=== PATIENT | male | born 1985 | race Caucasian/White ===

== ENCOUNTER 2016-08-06 17:26 | Emergency (ER) | payer BC ==
[~2016-08-06 17:26] MED LIST: ANAPROX DS550 MG PO; AUGMENTIN 875 M1 TAB PO; COUMADIN6 M1 PO; ENALAPRIL10 MG PO; HYDROCODONE BIT1 T11 PO; LOTRISONE 0.05%1 CRE TP; PREDNICOT10 MG PO; VICODIN 500 MG-1 TAB PO; VICODIN ES 7501 TAB PO
[2016-08-06] MEDS ORDERED: MEDROL DOSEPAK4 MG PO (18:23)
[2016-08-06] MEDS ORDERED: AMOXICILLIN500 M2 PO (18:23)
== END 2016-08-06 18:26 | disposition home or self-care (01) ==
LOC: ED 17:26
DX: J01.90 Acute sinusitis, unspecified (principal); J40 Bronchitis, not specified as acute or chronic

== ENCOUNTER 2016-10-18 20:48 | Emergency (ER) | payer BC ==
[~2016-10-18] VITALS: Ht 182.8 cm; Wt 108.9 kg
[~2016-10-18 20:48] MED LIST changes: +AMOXICILLIN500 M2 PO; +MEDROL DOSEPAK4 MG PO
== END 2016-10-18 22:39 | disposition home or self-care (01) ==
LOC: ED 20:48
DX: H61.23 Impacted cerumen, bilateral (principal); Z79.899 Other long term (current) drug therapy; Z79.02 Long term (current) use of antithrombotics/antiplatelets

== ENCOUNTER → 2016-12-27 | Outpatient (CLI) | payer BC ==
[2016-12-27 16:47] LABS: HEMATOCRIT 43.2 % (42.0-52.0); HEMOGLOBIN 14.5 g/dl (14.0-18.0); MEAN CELL VOLUME 87.8 fl (80.0-94.0); MEAN CORPUSCULAR HGB 29.5 pg (27.0-31.0); MEAN CORPUSCULAR HGB CONC 33.6 g/dl (33.0-37.0); RED BLOOD COUNT 4.92 10*6/uL (4.50-5.90); RED CELL DISTRI WIDTH 13.8 % (0-14.5); WHITE BLOOD COUNT 8.4 10*3/uL (4.8-10.8)
[2016-12-27 17:18] LABS: ALBUMIN 4.2 gm/dl (3.1-4.5); ALKALINE PHOSPHATASE 79 U/L (45-117); BILIRUBIN, TOTAL 0.3 mg/dl (0.2-1.0); BUN 18 mg/dl (7-24); CARBON DIOXIDE 29 mmol/L (21-32); CHLORIDE 110 mmol/L (98-107); CHOLESTEROL 157 mg/dL (<200); EST GLOM FILT AFRICAN AMERICAN > 60 ml/min; GLUCOSE 102 mg/dL (65-99); HDL CHOLESTEROL 46 mg/dl (40-60); LDL CHOLESTEROL 82 mg/dL (9-159); POTASSIUM 4.5 mmol/L (3.5-5.1); SGOT/AST 22 IU/L (3-35); SGPT/ALT 29 U/L (12-78); SODIUM 142 mmol/L (136-145); TOTAL PROTEIN 7.5 gm/dL (6.4-8.2); TRIGLYCERIDES 147 mg/dl (<150); VLDL CHOLESTEROL 29 mg/dL (6-40)
== END | disposition home or self-care (01) ==
LOC: LAB 16:33
PROVIDERS: Family Medicine
DX: M25.561 Pain in right knee (principal); M25.551 Pain in right hip; M79.604 Pain in right leg; E78.00 Pure hypercholesterolemia, unspecified; R53.83 Other fatigue; I51.9 Heart disease, unspecified; Z87.81 Personal history of (healed) traumatic fracture

== ENCOUNTER 2017-02-11 11:19 | Emergency (ER) | payer BC ==
[~2017-02-11] VITALS: Wt 117.9 kg
[2017-02-11] MEDS ORDERED: CIPROFLOXACIN 110 ML OPH (11:44)
== END 2017-02-11 12:42 | disposition home or self-care (01) ==
LOC: ED 11:19
DX: H10.32 Unspecified acute conjunctivitis, left eye (principal); Z79.899 Other long term (current) drug therapy; Z79.02 Long term (current) use of antithrombotics/antiplatelets

== ENCOUNTER 2019-06-23 10:01 | Emergency (ER) | payer BC ==
[~2019-06-23] VITALS: Ht 182.8 cm; Wt 127.0 kg
[~2019-06-23 10:01] MED LIST changes: +CEFUROXIME AXE250 MG PO; +CIPROFLOXACIN 110 ML OPH; +COUMADIN1 M1 PO; -COUMADIN6 M1 PO; +COUMADIN7.5 M1 PO; +HYDROCODONE-AC1 EAC1 PO; +PROTONIX40 MG PO
[2019-06-23] MEDS ORDERED: NORCO 5-325 TA1 EACH PO (12:55)
== END 2019-06-23 12:58 | disposition home or self-care (01) ==
LOC: ED 10:01
DX: S62.396A Other fracture of fifth metacarpal bone, right hand, initial encounter for closed fracture (principal); I10 Essential (primary) hypertension; F17.200 Nicotine dependence, unspecified, uncomplicated; Z79.2 Long term (current) use of antibiotics; Z79.899 Other long term (current) drug therapy; Z79.01 Long term (current) use of anticoagulants; W22.8XXA Striking against or struck by other objects, initial encounter; Y93.89 Activity, other specified; Y92.89 Other specified places as the place of occurrence of the external cause; Y99.8 Other external cause status

== ENCOUNTER → 2019-07-19 | Outpatient (CLI) | payer BC ==
[~2019-07-19] MED LIST changes: +NORCO 5-325 TA1 EACH PO
[2019-07-19 10:29] LABS: HEMATOCRIT 46.7 % (42.0-52.0); HEMOGLOBIN 15.3 g/dl (14.0-18.0); MEAN CELL VOLUME 87.6 fl (80.0-94.0); MEAN CORPUSCULAR HGB 28.7 pg (27.0-31.0); MEAN CORPUSCULAR HGB CONC 32.8 g/dl (33.0-37.0); RED BLOOD COUNT 5.33 10*6/uL (4.50-5.90); RED CELL DISTRI WIDTH 13.7 % (0-14.5); WHITE BLOOD COUNT 8.1 10*3/uL (4.8-10.8)
[2019-07-19 10:50] LABS: ALKALINE PHOSPHATASE 93 U/L (45-117); BUN 12 mg/dl (7-24); CHLORIDE 109 mmol/L (98-107); CHOLESTEROL 172 mg/dL (<200); CPK 143 U/L (39-308); CREATININE 1.07 mg/dL (0.70-1.30); HDL CHOLESTEROL 42 mg/dl (40-60); LDL CHOLESTEROL 105 mg/dL (9-159); POTASSIUM 3.8 mmol/L (3.5-5.1); SGOT/AST 22 IU/L (3-35); SGPT/ALT 32 U/L (12-78); SODIUM 141 mmol/L (136-145); TOTAL PROTEIN 7.4 gm/dL (6.4-8.2); TRIGLYCERIDES 126 mg/dl (<150); VLDL CHOLESTEROL 25 mg/dL (6-40)
[2019-07-19 10:58] LABS: THYROID STIM HORMONE (HS) 0.757 uIU/ml (0.358-4.75)
[2019-07-20 07:04] LABS: RHEUMATOID ARTHRITIS FACTOR <10.0 IU/mL (0.0-13.9)
== END | disposition home or self-care (01) ==
LOC: LAB 10:05
PROVIDERS: Family Medicine
DX: R21 Rash and other nonspecific skin eruption (principal); R53.83 Other fatigue; E55.9 Vitamin D deficiency, unspecified; M25.50 Pain in unspecified joint; M79.10 Myalgia, unspecified site; E78.00 Pure hypercholesterolemia, unspecified

== ENCOUNTER → 2022-06-28 | Outpatient (CLI) | payer BC ==
[2022-06-28 16:29] LABS: INTERNATIONAL NORM RATIO 2.3 (2.0-3.5)
== END | disposition home or self-care (01) ==
LOC: LAB 15:47
DX: Z95.2 Presence of prosthetic heart valve (principal)

== ENCOUNTER 2022-09-10 08:29 | Emergency (ER) | payer BC ==
[~2022-09-10] VITALS: Ht 182.8 cm; Wt 127.0 kg
[2022-09-10] MEDS ORDERED: PREDNISONE50 MG PO (08:54)
[2022-09-10] MEDS ORDERED: PROVENTIL HFA6.7 GM INH (08:54)
[2022-09-10] MEDS ORDERED: ZITHROMAX250 MG PO (08:54)
== END 2022-09-10 09:30 | disposition home or self-care (01) ==
LOC: ED 08:29
DX: J40 Bronchitis, not specified as acute or chronic (principal); I10 Essential (primary) hypertension; I34.1 Nonrheumatic mitral (valve) prolapse; Z98.890 Other specified postprocedural states

== ENCOUNTER → 2023-03-21 | Outpatient (CLI) | payer BC ==
[~2023-03-21] MED LIST changes: +PREDNISONE50 MG PO; +PROVENTIL HFA6.7 GM INH; +ZITHROMAX250 MG PO
[2023-03-21 11:47] LABS: HEMATOCRIT 46.1 % (42.0-52.0); MEAN CELL VOLUME 86.5 fl (80.0-94.0); MEAN CORPUSCULAR HGB 29.3 pg (27.0-31.0); MEAN CORPUSCULAR HGB CONC 33.8 g/dl (33.0-37.0); MEAN PLATELET VOLUME 10.3 fl (9.6-12.3); RED BLOOD COUNT 5.33 10*6/uL (4.50-5.90); RED CELL DISTRI WIDTH 13.4 % (0-14.5); WHITE BLOOD COUNT 6.5 10*3/uL (4.8-10.8)
[2023-03-21 12:15] LABS: ALKALINE PHOSPHATASE 76 U/L (46-116); BUN 10 mg/dl (9-23); CHLORIDE 108 mmol/L (98-107); CHOLESTEROL 163 mg/dL (<200); LDL CHOLESTEROL 97 mg/dL (9-159); POTASSIUM 4.3 mmol/L (3.4-5.1); SGPT/ALT 19 U/L (5-49); TOTAL PROTEIN 7.2 gm/dL (6.0-8.0); TRIGLYCERIDES 114 mg/dl (<150)
[2023-03-21 12:33] LABS: VITAMIN D, 25-HYDROXY 38.6 ng/mL (30-100)
[2023-03-22 05:05] LABS: HBSAG Negative (Negative); HEP B CORE AB, IGM Negative (Negative); HEPATITIS C ANTIBODY Non Reactive (Non Reactive)
== END | disposition home or self-care (01) ==
LOC: LAB 11:14
PROVIDERS: ATTEND Family Medicine
DX: E78.00 Pure hypercholesterolemia, unspecified (principal); E55.9 Vitamin D deficiency, unspecified; M25.50 Pain in unspecified joint; M79.10 Myalgia, unspecified site; Z77.018 Contact with and (suspected) exposure to other hazardous metals; R53.83 Other fatigue

== ENCOUNTER 2024-05-04 15:44 | Emergency (ER) | payer BC ==
[~2024-05-04] VITALS: Ht 185.4 cm; Wt 131.5 kg
[2024-05-04] MEDS ORDERED: Acetaminophen/Hydrocodone 5 MG/325 MG TABLET PO ONE (16:40)
[2024-05-04] MEDS ORDERED: HYDROCODONE-AC1 EAC1 PO (16:57)
== END 2024-05-04 17:09 | disposition home or self-care (01) ==
LOC: ED 15:44
DX: S92.512A Displaced fracture of proximal phalanx of left lesser toe(s), initial encounter for closed fracture (principal); Z98.890 Other specified postprocedural states; W23.0XXA Caught, crushed, jammed, or pinched between moving objects, initial encounter; Y93.02 Activity, running; Y92.89 Other specified places as the place of occurrence of the external cause; Y99.8 Other external cause status

== ENCOUNTER 2024-06-30 09:40 | Emergency (ER) | payer BC ==
[~2024-06-30] VITALS: Ht 182.8 cm; Wt 131.5 kg
[2024-06-30] MEDS ORDERED: WARFARIN2 MG PO (09:57)
[2024-06-30] MEDS ORDERED: PRILOSEC20 M1 PO (09:58)
[2024-06-30] MEDS ORDERED: CLARITIN10 MG PO (09:58)
[2024-06-30 10:38] LABS: BASO % 0.3 % (0.0-1.0); EOS # 0.1 10*3/uL (0.0-0.4); EOS % 1.8 % (1.0-4.0); MEAN CELL VOLUME 86.4 fl (80.0-94.0); MEAN CORPUSCULAR HGB 28.5 pg (27.0-31.0); MEAN PLATELET VOLUME 10.3 fl (9.6-12.3); MONO # 0.9 10*3/uL (0.1-1.0); MONO % 13.3 % (3.0-9.0); NEUT # 5.2 10*3/uL (2.3-7.9); PLATELET COUNT AUTOMATED 150 10*3/uL (130-400); RED BLOOD COUNT 5.44 10*6/uL (4.50-5.90); RED CELL DISTRI WIDTH 14.5 % (0-14.5); WHITE BLOOD COUNT 6.8 10*3/uL (4.8-10.8)
[2024-06-30] MEDS ORDERED: SODIUM CHLORIDE 0.9% 500 ML IV ONE (10:40)
[2024-06-30 10:51] LABS: ACT PARTIAL THROMBO TIME 50.1 SECONDS (20.0-32.1)
[2024-06-30 11:02] LABS: ALKALINE PHOSPHATASE 91 U/L (46-116); BUN 11 mg/dl (9-23); CHLORIDE 105 mmol/L (98-107); POTASSIUM 4.2 mmol/L (3.4-5.1); SGPT/ALT 29 U/L (5-49); TOTAL PROTEIN 7.3 gm/dL (6.0-8.0)
[2024-06-30 11:22] LABS: BILIRUBIN Negative (Negative); BLOOD 2+ (Negative); CLARITY Clear (Clear); COLOR Yellow (Yellow); GLUCOSE Negative (Negative); KETONE Trace (Negative); LEUKO ESTERASE Negative (Negative); NITRITE Negative (Negative); SPECIFIC GRAVITY >= 1.030 (1.001-1.030)
[2024-06-30 11:34] LABS: BACTERIA TRACE; MUCOUS 1+; RBC 31-40 rbc/hpf (0-2); WBC 0-2 wbc/hpf (0-5)
[2024-06-30] MEDS ORDERED: Oseltamivir Phosphate 75 MG CAP PO ONE (12:05)
[2024-06-30] MEDS ORDERED: ACETAMINOPHEN 325 MG TAB PO ONE (12:10)
== END 2024-06-30 13:14 | disposition home or self-care (01) ==
LOC: ED 09:40
PROVIDERS: Emergency Medicine
DX: J09.X9 Influenza due to identified novel influenza A virus with other manifestations (principal); Z20.822 Contact with and (suspected) exposure to COVID-19; I51.7 Cardiomegaly; I10 Essential (primary) hypertension; R10.2 Pelvic and perineal pain; Z98.890 Other specified postprocedural states; Z90.49 Acquired absence of other specified parts of digestive tract

== ENCOUNTER 2024-09-01 21:01 | Emergency (ER) | payer BC ==
[~2024-09-01] VITALS: Ht 182.8 cm; Wt 133.8 kg
[~2024-09-01 21:01] MED LIST changes: +CLARITIN10 MG PO; +PRILOSEC20 M1 PO; +WARFARIN2 MG PO
[2024-09-01] MEDS ORDERED: Acetaminophen/Oxycodone 5 MG/325 MG TABLET PO ONE (21:35)
[2024-09-01] MEDS ORDERED: HYDROCODONE-AC1 EAC1 PO (23:04)
== END 2024-09-01 23:11 | disposition home or self-care (01) ==
LOC: ED 21:01
DX: S83.92XA Sprain of unspecified site of left knee, initial encounter (principal); Z79.899 Other long term (current) drug therapy; Z79.01 Long term (current) use of anticoagulants; X50.1XXA Overexertion from prolonged static or awkward postures, initial encounter; Y93.89 Activity, other specified; Y92.89 Other specified places as the place of occurrence of the external cause; Y99.8 Other external cause status